=== PATIENT | female | born 1995 | race Caucasian/White ===

== ENCOUNTER 2020-05-14 13:53 | Emergency (ER) | payer OTHER, SELFPAY ==
--- NOTE | ~2020-05-14 | CT_ITS ---
EXAMINATION: CT abdomen pelvis w con DATE: 05/14/2020 15:01 INDICATION: Right lower quadrant abdominal pain TECHNIQUE: Computed tomography (CT) of the abdomen and pelvis was performed with 100 mL Omnipaque-350 intravenous contrast. Automated exposure control and iterative reconstruction technique were employe d. The dose-length product was 200.27 mGy-cm. COMPARISON: None FINDINGS: Lung bases are clear. Heart size is normal. No pericardial or pleural effusion. Small region of focal hepatic steatosis at the ligamentum teres. Gallbladder, spleen, pancreas, bilateral adrenal glands a nd kidneys are normal. Normal appendix. No abnormal bowel wall thickening or obstruction. 2.5 cm left adnexal cyst/follicle. Bladder and right adnexa are unremarkable. T-shaped IUD in expected position within the endometrial canal of the retroverted uterus. Small amount of likely reactive free fluid in the cul-de-sac. No pathologically enlarged abdominal or pelvic lymphadenopathy. Bones are unremarkab le. IMPRESSION: 1. Normal appendix. No acute intra-abdominal/pelvic process. 2. 2.5 cm left adnexal cyst/follicle with small amount of likely physiologic free fluid in the cul-de -sac. Reviewed, dictated and finalized at location A. IMPRESSION: 1. Normal appendix. No acute intra-abdominal/pelvic process. 2. 2.5 cm left adnexal cyst/follicle with small amount of likely physiologic fr ee fluid in the cul-de-sac.
[2020-05-14 13:57] VITALS: BP 141/76; PULSE 69; RESP 16; TEMP 36.7; O2SAT 100
[2020-05-14 14:28] LABS: Basophils Percent Auto 0.3 % (0.2-1.2); Eosinophils Absolute Auto 0.1 K/mm3 (0-0.3); Eosinophils Percent Auto 1.3 % (0-4.4); Hematocrit 44.1 % (37.0-47.0); Hemoglobin 14.5 g/dL (12.0-15.0); Immature Granulocyte Absolute 0.02 K/mm3 (0.00-0.031); Immature Granulocyte Percent A 0.2 % (0-0.5); Lymphocytes Absolute Auto 2.12 K/mm3 (0.9-3.2); Lymphocytes Percent Auto 22.8 % (18.3-44.2); Mean Corpuscular HGB Conc 32.9 g/dl (32-36); Mean Corpuscular Hemoglobin 29.6 pg (26-34); Mean Platelet Volume 8.9 fl (7.4-10.4); Monocytes Absolute Auto 0.7 K/mm3 (0.1-0.6); Monocytes Percent Auto 7.5 % (2.6-8.5); Neutrophils Absolute Auto 6.3 K/mm3 (1.3-6.7); Neutrophils Percent Auto 67.9 % (45.5-73.1); Platelet Count Result 365 k/mm3 (150-375); Red Cell Distribution Width 13.4 % (11.5-14.5); White Blood Count 9.3 K/mm3 (4.5-10.0)
[2020-05-14 14:30] LABS: Add Urine Microscopic? NO; Appearance Urine Clear (Clear); Bilirubin Urine Negative (Negative); Blood Urine Negative (Negative); Color Urine Straw (Yellow); Glucose Urine UA Negative (Negative); Ketones Urine Negative (Negative); Leukocyte Esterase Ur Negative LEU/UL (Negative); Nitrate Urine Negative (Negative); Protein Urine Negative (Negative); Specific Grav Ur 1.008 (1.001-1.035); Urobilinogen Urine Negative mg/dL (<2.0)
[2020-05-14 14:47] LABS: Alanine Aminotransferase 15 U/L (4-35); Alkaline Phosphatase 45 U/L (38-126); Anion Gap 8 mmol/L (8-16); Aspartate Amino Transferase 27 U/L (14-36); Bilirubin,Total 0.5 mg/dL (0.2-1.3); Blood Urea Nitrogen 6 mg/dL (7-17); Carbon Dioxide 28 mmol/L (22-30); Chloride 103 mmol/L (98-107); Estimated CRCL calculation 90 ml/min; Estimated Glomerular Filt Rate > 60; Glucose 97 mg/dL (65-105); Lipase 58 U/L (23-300); Potassium 3.5 mmol/L (3.4-5.0); Sodium 139 mmol/L (137-145)
--- NOTE | 2020-05-14 15:24 | ED.GENADULT ---
HPI - General Adult General Chief complaint: Abdominal Pain Stated complaint: abd pain Time Seen by Provider: 05/14/20 14:05 Source: patient Mode of arrival: ambulatory Limitations: no limitations History of Present Illness HPI narrative: Patient presents with chief complaint of right lower quadrant pain and patient states has been intermittent since Tuesday. Patient states she was seen at [facility] and told that she had fluid poisoning but she did not remember the diagnosis. Patient states that she saw her primary care Dr. Bowie today who instructed her to come to the emergency department for further evaluation to rule out appendicitis. Patient reports occasional nausea but denies vomiting or diarrhea. Patient states that she feels she has had less stools than typical recently but denies blood or mucus in them. Patient denies fever, chills. Patient states that she recently had her IUD placed and has had some pelvic cramping since it was placed and also wonders if it is correct location. Patient reports having a few days of cramping and menstrual bleeding over the weekend but states that they stopped yesterday. Patient denies any urinary symptoms. Patient denies present vaginal bleeding or discharge. Related Data Home Medications Medication Instructions Recorded Confirmed No Home Medications 05/14/20 05/14/20 Allergies Allergy/AdvReac Type Severity Reaction Status Date / Time No Known Allergies Allergy Verified 02/10/19 16:26 Review of Systems Review of Systems: Narrative: CONSTITUTIONAL: Denies fever, chills, or sweats. EYES: Denies visual changes, redness, or discharge. ENT: Denies rhinorrhea, congestion, sore throat, or otalgia. CARDIOVASCULAR: Denies chest pain, palpitations, or edema. RESPIRATORY: Denies cough or dyspnea. GASTROINTESTINAL: Reports right lower quadrant abdominal pain with intermittent nausea, vomiting, Denies diarrhea. GENITOURINARY: Denies dysuria or hematuria. SKIN: Denies rash or itching. MUSCULOSKELETAL: Denies back pain, joint pain, or myalgia. NEUROLOGIC: Denies headache, numbness, dizziness, or weakness. PSYCHIATRIC: Denies anxiety or depression. [facility] Family History Family History (Updated 10/11/13 @ 07:13 by DOCTOR UNKNOWN) Grandparent Hypertension Family history of elevated blood lipids Diabetes mellitus Social History Social History Smoking status: Never smoker Alcohol intake: current Gender identity (if verbalized by the patient): Female Exam Narrative: Exam Narrative: GENERAL: Well-appearing, well-nourished, and in no acute distress. Patient does not appear to be in discomfort. HEAD: Normocephalic, atraumatic. EYES: PERRLA and EOMI. NECK: Supple. No adenopathy or masses. CHEST: Clear to auscultation. No respiratory distress. No wheezes rales or rhonchi HEART: Regular rate and rhythm. No murmur heard. Normal peripheral pulses. ABDOMEN: Soft, discomfort with palpation of right lower quadrant, no rebound or guarding. Nondistended, normal active bowel sounds. EXTREMITIES: Normal range of motion. No edema. SKIN: Warm, dry, no rash. NEURO: No focal deficits. Alert and oriented x3. PSYCH: Normal mood and affect. Course Vital Signs Vital signs: Vital Signs Temperature 98.0 F 05/14/20 13:57 Pulse Rate 69 05/14/20 13:57 Respiratory Rate 16 05/14/20 13:57 Blood Pressure 141/76 H 05/14/20 13:57 Pulse Oximetry 100 05/14/20 13:57 Temperature 98.0 F 05/14/20 13:57 Pulse Rate 69 05/14/20 13:57 Respiratory Rate 16 05/14/20 13:57 Blood Pressure 141/76 H 05/14/20 13:57 Pulse Oximetry 100 05/14/20 13:57 Medical Decision Making MDM Narrative Medical decision making narrative: Patient does not appear to be in significant pain or discomfort. Patient's vitals are stable. She is not tachycardic. Patient states he does not have any signs of appendicitis or intra-abdominal findings other than a cyst. Her IUD
[2020-05-14] MEDS: KETOROLAC 15 MG/ML VIAL (*BKC) IV PUSH (15:27)
[2020-05-14 16:04] VITALS: BP 132/78; PULSE 68; RESP 18; O2SAT 99
== END 2020-05-14 16:05 | disposition home or self-care (01) ==
PROVIDERS: Emergency Medicine; Emergency Provider Emergency Medicine; PCP Family Medicine
DX: R10.31 Right lower quadrant pain (principal)
CPT/HCPCS: 36415; 74177; 80053; 81003; 81025; 83690; 85025; 96374; 99284; J1885; Q9967

== ENCOUNTER 2020-06-22 21:20 | Emergency (ER) | payer OTHER, SELFPAY ==
[2020-06-22] VITALS (18 sets, daily range): BP systolic 114–137; BP diastolic 65–87; PULSE 66–99; RESP 11–25; O2SAT 98–100
--- NOTE | ~2020-06-22 | XR_ITS ---
XR chest 2V DATE: 06/22/2020 21:47 INDICATION: Chest pain radiating to left arm and jaw. TECHNIQUE: PA and lateral views COMPARISON: None FINDINGS: Normal heart size. No hilar or mediastinal enlargement. No pulmonary infiltrate or consolid ation, pleural effusion or pulmonary vascular congestion or pneumothorax. Included skeletal structure s are unremarkable. IMPRESSION: No active cardiopulmonary disease Reviewed, dictated and finalized at location A.
--- NOTE | 2020-06-22 21:34 | ECG_ITS ---
Measurements Intervals [place] Rate: 96 P: 60 AL: 133 QRS: 69 QRSD: 97 T: 30 QT: 336 QTc: 425 Interpretive Statements SINUS RHYTHM WITH MARKED SINUS ARRHYTHMIA MINIMAL Q WAVES- DIFFUSE LEADS BORDERLINE ST-T WAVE ABNORMALITY- INFERIOR LEADS BASELINE ARTIFACT- II, III, AVR, AVL, AVF, V3 BORDERLINE ECG Electronically Signed On 06-23-2020 7:02:06 CDT by Raphael Noland D.O.
[2020-06-22 21:47] LABS: Basophils Absolute Auto 0.1 K/mm3 (0.0-0.1); Basophils Percent Auto 0.5 % (0.2-1.2); Eosinophils Absolute Auto 0.3 K/mm3 (0-0.3); Eosinophils Percent Auto 1.7 % (0-4.4); Hematocrit 46.2 % (37.0-47.0); Immature Granulocyte Absolute 0.08 K/mm3 (0.00-0.031); Immature Granulocyte Percent A 0.5 % (0-0.5); Lymphocytes Absolute Auto 3.46 K/mm3 (0.9-3.2); Lymphocytes Percent Auto 22.3 % (18.3-44.2); Mean Corpuscular HGB Conc 32.5 g/dl (32-36); Mean Corpuscular Hemoglobin 29.7 pg (26-34); Mean Corpuscular Volume 91.5 fl (80-100); Mean Platelet Volume 8.9 fl (7.4-10.4); Monocytes Percent Auto 6.4 % (2.6-8.5); Neutrophils Absolute Auto 10.7 K/mm3 (1.3-6.7); Neutrophils Percent Auto 68.6 % (45.5-73.1); Platelet Count Result 372 k/mm3 (150-375); Red Blood Count 5.05 M/mm3 (4.2-5.4); Red Cell Distribution Width 13.4 % (11.5-14.5); White Blood Count 15.5 K/mm3 (4.5-10.0)
[2020-06-22 21:57] LABS: Anion Gap 8 mmol/L (8-16); Blood Urea Nitrogen 9 mg/dL (7-17); Calcium 10.1 mg/dL (8.4-10.2); Carbon Dioxide 27 mmol/L (22-30); Chloride 103 mmol/L (98-107); Estimated CRCL calculation 108 ml/min; Estimated Glomerular Filt Rate > 60; Glucose 92 mg/dL (65-105); Potassium 3.5 mmol/L (3.4-5.0); Sodium 138 mmol/L (137-145)
--- NOTE | 2020-06-22 21:57 | ED.CHESTPAIN ---
HPI - Chest Pain General Chief Complaint: Chest Pain Stated Complaint: chest pain Time Seen by Provider: 06/22/20 21:35 Source: patient, family and RN notes reviewed Mode of arrival: ambulatory Limitations: no limitations History of Present Illness HPI narrative: Patient is 24 years old white female presents with sudden onset of chest pain radiating to her jaw, neck and left upper extremity. Patient searched her symptoms on the Internet. Patient reports some stress in her life weeks ago, currently no significant distress. Patient denies any fever, chills, nausea, vomiting, diarrhea, shortness of breath or similar symptoms. Strong family history of anxiety/depression in both sides of her parents. Related Data Allergies Allergy/AdvReac Type Severity Reaction Status Date / Time No Known Allergies Allergy Verified 06/22/20 21:33 Review of Systems Review of Systems: Narrative: CONSTITUTIONAL: Denies fever, chills, or sweats. EYES: Denies visual changes, redness, or discharge. ENT: Denies rhinorrhea, congestion, sore throat, or otalgia. CARDIOVASCULAR: Denies chest pain, palpitations, or edema. RESPIRATORY: Denies cough or dyspnea. GASTROINTESTINAL: Denies abdominal pain, nausea, vomiting, or diarrhea. GENITOURINARY: Denies dysuria or hematuria. SKIN: Denies rash or itching. MUSCULOSKELETAL: Denies back pain, joint pain, or myalgia. NEUROLOGIC: Denies headache, numbness, or weakness. PSYCHIATRIC: Some anxiety and depression. PMFSH Family History Family History Grandparent Hypertension Family history of elevated blood lipids Diabetes mellitus Social History Social History Smoking status: Never smoker Alcohol intake: current Gender identity (if verbalized by the patient): Female Exam Narrative: Exam Narrative: General appearance: Well-developed, well-nourished, patient is hyperventilating, grandmother at the bedside Skin: Normal color Head: Normocephalic, nontraumatic Eyes: Clear conjunctiva ENT: Oropharynx normal, ears normal, nose normal Neck: Supple, nontender Chest and respiratory: Airway patent, no respiratory distress, no accessory muscle use Heart: Regular rate/rhythm Abdomen: Soft, nontender, no organomegaly, quiet bowel sounds Vascular: Normal peripheral pulses, normal capillary refill. Musculoskeletal: Normal range of motion, nontender back Neurologic: Alert and oriented ?3, [employer] is normal as tested, no gross motor deficit Course Course Emergency Course: Stable Reevaluation(s) Reevaluation #1: Patient symptoms are resolved after Ativan. Currently patient is asymptomatic and ready to go home. Date: 06/22/20 Time: 23:25 Vital Signs Vital signs: Vital Signs Pulse Rate 85 06/22/20 21:24 Respiratory Rate 21 H 06/22/20 21:24 Blood Pressure 126/79 06/22/20 21:24 Pulse Oximetry 100 06/22/20 21:24 Pulse Rate 85 06/22/20 21:24 Respiratory Rate 21 H 06/22/20 21:24 Blood Pressure 126/79 06/22/20 21:24 Pulse Oximetry 100 06/22/20 21:24 MDM - Chest Pain MDM Narrative Medical decision making narrative: Patient presents with chest pain and hyperventilation. Anxiety/depression is my concern. Labs, chest x-ray, EKG ordered. Further plan to follow Differential Diagnosis Differential diagnosis: Likely pneumothorax, atypical chest pain, costochondritis and chest pain Lab Data Result diagrams: 06/22/20 21:37 06/22/20 21:37 Labs: Lab Results 06/22/20 06/22/20 06/22/20 Range/Units 21:37 21:37 21:37 WBC 15.5 H (4.5-10.0) K/mm3 RBC 5.05 (4.2-5.4) M/mm3 Hgb 1
[2020-06-22 21:58] LABS: INR 0.9; Prothrombin Time 12.7 Seconds (11.1-14.7)
[2020-06-22 21:59] LABS: Partial Thromboplastin Time 28.1 SECONDS (22.3-36.8)
[2020-06-22 22:01] LABS: D Dimer 0.42 ug/mL (<0.48)
[2020-06-22] MEDS: LORazepam INJ (*CRX) 2 MG/ML VIAL 1 MG IV PUSH (22:02)
[2020-06-22 22:09] LABS: Troponin I < 0.012 ng/mL (0.000-0.034)
== END 2020-06-22 23:58 | disposition home or self-care (01) ==
PROVIDERS: Emergency Provider Emergency Medicine; PCP Family Medicine
DX: R07.89 Other chest pain (principal); F45.8 Other somatoform disorders; R94.31 Abnormal electrocardiogram [ECG] [EKG]
CPT/HCPCS: 36415; 71046; 80048; 84484; 85025; 85380; 85610; 85730; 93005; 96374; 99284; J2060